=== PATIENT | male | born 1995 | race Hispanic/Latino ===

== ENCOUNTER 2017-11-07 18:34 | Emergency (ER) | payer MEDICAID, OTHER ==
[2017-11-07] MEDS ORDERED: PENICILLIN V POTASSIUM 500 MG TABLET ONE (19:10)
[2017-11-07] MEDS ORDERED: ACETAMINOPHEN-CODEINE 300/30MG TAB ONE (19:11)
== END 2017-11-07 19:26 | disposition home or self-care (01) ==
LOC: EDH 18:34
DX: K04.7 Periapical abscess without sinus (principal); Z72.0 Tobacco use

== ENCOUNTER 2018-11-18 19:43 | Emergency (ER) | payer OTHER ==
[2018-11-18 20:35] LABS: APPEARANCE,URINE Clear (CLEAR); BILIRUBIN,URINE Negative (NEGATIVE); COLOR,URINE Yellow (YELLOW); GLUCOSE, URINE (UA) Negative (NEGATIVE); KETONES,URINE Negative (NEGATIVE); LEUKOCYTE ESTERASE ,URINE Small (NEGATIVE); NITRATE,URINE Negative (NEGATIVE); OCCULT BLOOD,URINE Negative (NEGATIVE); PH,URINE 5.5 (5.0-8.0); PROTEIN,URINE Negative (NEGATIVE); UROBILINOGEN,URINE 0.2 mg/dL (0.2-1.0)
[2018-11-18 20:44] LABS: AMPHET/METH SCREEN,URINE NEGATIVE (NEGATIVE); BARBITURATE SCREEN, URINE NEGATIVE (NEGATIVE); BENZODIAZEPINES SCREEN,URINE NEGATIVE (NEGATIVE); CANNABINOID SCREEN,URINE POSITIVE (NEGATIVE); COCAINE SCREEN,URINE NEGATIVE (NEGATIVE); OPIATE SCREEN,URINE NEGATIVE (NEGATIVE); PHENCYCLIDINE SCREEN,URINE NEGATIVE (NEGATIVE)
[2018-11-18 20:58] LABS: BACTERIA,URINE Few /HPF (None Seen); RBC,URINE 0-1 /HPF (0-1); SQUAMOUS EPITHELIAL CELL,UR 0-2 /HPF (0-2)
[2018-11-18] MEDS ORDERED: KETOROLAC TROMETHAMINE 60 MG/2 ML VIAL ONE (21:52)
[2018-11-18] MEDS ORDERED: BENZONATATE 100 MG CAPSULE PO ONE (21:52)
== END 2018-11-18 22:01 | disposition home or self-care (01) ==
LOC: EDH 19:43
DX: R07.89 Other chest pain (principal); R05 Cough
CPT/HCPCS: 71046; 80305; 81001; 93005; 96372; 99284; J1885

== ENCOUNTER 2020-02-14 17:37 | Emergency (ER) | payer SELFPAY ==
[2020-02-14] MEDS ORDERED: KETOROLAC TROMETHAMINE 30MG/ML ONE (18:45)
[2020-02-14] MEDS ORDERED: ONDANSETRON HCL 4 MG/2 ML VIAL ONE (18:45)
[2020-02-14 18:56] LABS: BASOPHILS % (AUTO) 0.1 % (0.0-5.0); EOSINOPHILS % (AUTO) 0.1 % (0.0-8.0); HEMATOCRIT 42.1 % (42-54); LYMPHOCYTES % (AUTO) 7.2 % (21.0-51.0); MEAN CORPUSCULAR HEMOGLOBIN 28.9 pg (27.0-33.0); MEAN CORPUSCULAR HGB CONC 33.7 g/dL (32.0-36.0); MEAN CORPUSCULAR VOLUME 85.7 fL (79-99); MONOCYTES % (AUTO) 3.8 % (3.0-13.0); NEUTROPHILS % (AUTO) 88.5 % (40.0-77.0); PLATELET COUNT (AUTO) 194 K/uL (130-400); RED BLOOD CELL COUNT(AUTO) 4.91 MIL/uL (4.50-6.20); RED CELL DISTRIBUTION WIDTH 12.3 % (11.0-15.5)
[2020-02-14 19:05] LABS: CREATININE 1.2 mg/dL (0.5-1.5); POTASSIUM 3.6 mmol/L (3.5-5.1)
[2020-02-14 19:10] LABS: ALBUMIN 4.2 g/dL (3.5-5.0); BILIRUBIN,TOTAL 0.3 mg/dL (0.2-1.0); TOTAL PROTEIN, SERUM 7.1 g/dL (6.0-8.3)
[2020-02-14 19:17] LABS: APPEARANCE,URINE Clear (CLEAR); BILIRUBIN,URINE Negative (NEGATIVE); COLOR,URINE Yellow (YELLOW); GLUCOSE, URINE (UA) Negative (NEGATIVE); KETONES,URINE Trace mg/dL (NEGATIVE); LEUKOCYTE ESTERASE ,URINE Negative (NEGATIVE); NITRATE,URINE Negative (NEGATIVE); OCCULT BLOOD,URINE Negative (NEGATIVE); PROTEIN,URINE Negative (NEGATIVE); UROBILINOGEN,URINE 0.2 mg/dL (0.2-1.0)
[2020-02-14 19:52] LABS: BACTERIA,URINE Rare /HPF (None Seen); RBC,URINE None Seen /HPF (0-1); SQUAMOUS EPITHELIAL CELL,UR None Seen /HPF (0-2); WBC,URINE 0-1 /HPF (0-1)
== END 2020-02-14 21:30 | disposition home or self-care (01) ==
LOC: EDH 17:37
DX: G43.109 Migraine with aura, not intractable, without status migrainosus (principal); Z87.891 Personal history of nicotine dependence
CPT/HCPCS: 36415; 74176; 80053; 81001; 85025; 96374; 96375; 99284; J1885; J2405

== ENCOUNTER 2021-03-01 07:25 | Emergency (ER) | payer OTHER ==
[~2021-03-01] VITALS: Ht 175.3 cm; Wt 68.0 kg
[2021-03-01] MEDS ORDERED: ORPHENADRINE CITRATE 30 MG/ML ML IM SCH (07:45)
[2021-03-01] MEDS ORDERED: KETOROLAC 60 MG VIAL (30MG/ML) IM SCH (07:45)
[2021-03-01 08:00] VITALS: BP 138/74
[2021-03-01] MEDS ORDERED: MORPHINE 4 MG SYG IV SCH (09:30)
[2021-03-01] MEDS ORDERED: ONDANSETRON 4MG INJ IVP SCH (09:30)
[2021-03-01] MEDS ORDERED: PROPOFOL 10 MG/ML 20ML VIAL IV ONE (10:08)
[2021-03-01] MEDS ORDERED: NACL 0.9% 1000ML 1,000 ML IV ONE (10:09)
[2021-03-01] MEDS ORDERED: MIDAZOLAM HCL 1 MG/ML 2ML VIAL ONE (10:22)
[2021-03-01] MEDS ORDERED: PROPOFOL 10 MG/ML 20ML VIAL IV SCH (11:30)
[2021-03-01 12:00] VITALS: BP 130/67
[2021-03-01] MEDS ORDERED: IBUP-2070 PO (12:15)
[2021-03-01 13:40] VITALS: BP 126/74
== END 2021-03-01 13:51 | disposition home or self-care (01) ==
LOC: EDH 07:25
DX: S43.035A Inferior dislocation of left humerus, initial encounter (principal); X58.XXXA Exposure to other specified factors, initial encounter; Z79.899 Other long term (current) drug therapy; Y93.89 Activity, other specified; Y92.89 Other specified places as the place of occurrence of the external cause; Y99.8 Other external cause status
CPT/HCPCS: 23650; 73030 ×2; 96360; 96372; 99152; 99285; J1885; J2250; J2704; J7030

== ENCOUNTER 2025-01-11 15:35 | Emergency (ER) | payer SELFPAY ==
[~2025-01-11] VITALS: Ht 170.2 cm; Wt 79.4 kg
[2025-01-11 15:36] VITALS: BP 127/69; PULSE 64; RESP 20; TEMP 98.4
--- NOTE | 2025-01-11 15:57 | ERN ---
ED Note History of Present Illness Stated Complaint: SUTURE REMOVAL Chief Complaint: Suture/Staple Removal Time Seen by MD: 15:39 Dictation: PATIENT IS A 29-YEAR-OLD MALE COMING IN TODAY WITH REQUEST REMOVE SURGICAL SUTURES FROM HIS RIGHT THUMB. DR. MARK HOGUE AT PERFORMED AN I&D ON HIS THUMB ON 12/22/2024, HE HAS HAD NO FEVER NO CHILLS NO NAUSEA VOMITING. STATES HE DID NOT FOLLOW UP WITH DR. HOGUE INSTRUCTED. NEUROVASCULAR CMS INTACT Allergies: Coded Allergies: No Known Allergies (Unverified Allergy, Unknown, 03/01/21) Home Meds No Active Prescriptions or Reported Meds Past Medical History Past Medical History: No Pertinent History Surgical History: None RN Note Reviewed/Agreed w/PFSH: Yes Review of System Dictation CONSTITUTIONAL: NEGATIVE EXCEPT FOR HPI HEAD/FACE: NEGATIVE EXCEPT FOR HPI EENT: NEGATIVE EXCEPT FOR HPI RESPIRATORY: NEGATIVE EXCEPT FOR HPI GASTROINTESTINAL/ABDOMINAL: NEGATIVE EXCEPT FOR HPI GENITOURINARY: NEGATIVE EXCEPT FOR HPI MUSCULOSKELETAL: NEGATIVE EXCEPT FOR HPI INTEGUMENTARY: NEGATIVE EXCEPT FOR HPI INCISION LINE WITH SIMPLE INTERRUPTED SUTURES TO RIGHT THUMB. WELL APPROXIMATED NO INFLAMMATION NEUROLOGICAL/PSYCH: NEGATIVE EXCEPT FOR HPI HEMATOLOGIC/LYMPHATIC: NEGATIVE EXCEPT FOR HPI ALL SYSTEMS NEGATIVE, EXCEPT NOTED ABOVE. 13 POINT REVIEW OF SYSTEMS ASSESSED AND ALL NEGATIVE EXCEPT FOR ABOVE. Initial Vital Sign VS Vital Signs Date Time Temp Pulse Resp B/P (MAP) Pulse Ox O2 Delivery O2 Flow Rate FiO2 01/11/25 15:36 98.4 64 20 127/69 99 Room Air Physical Exam Dictation VITAL SIGNS REVIEWED GENERAL APPEARANCE: ALERT, ORIENTED X 3, NO ACUTE DISTRESS, WELL DEVELOPED, NOURISHED. HEAD AND FACE: NON-TRAUMATIC. EYES: PERRL, PINK CONJUNCTIVAS, EYELID NO TRAUMA, ANTERIOR CHAMBER WITH ARCUS SENILIS. EARS: PINNAS INTACT AND NO SIGNS OF TRAUMA OR ERYTHEMA EAR CANALS CLEAR AND NO DISCHARGE TM NO ERYTHEMA NOSE: NO DISCHARGE, NO BLEEDING. OROPHARYNX: MOUTH NORMAL, TONGUE PINK, PHARYNX CLEAR,NO ERYTHEMA, TONSILS NO EXUDATES, NO ABSCESSES NOTED, MUCOUS MEMBRANE MOIST NECK: SUPPLE, NON-TENDER, NO THYROMEGALY, NO MASSES, NO JVD, NO BRUITS BREAST:DEFERRED CHEST:NO TENDERNESS, NO CREPITUS, NO PARADOXICAL MOVEMENT, NO RETRACTIONS LUNGS:CLEAR, WELL-VENTILATED, SYMMETRIC, NO RALES, NO WHEEZING, NO RHONCHI, NO STRIDOR, GOOD BREATH SOUNDS BILATERALLY HEART: REGULAR RATE, REGULAR RHYTHM, NO MURMUR, NO GALLOPS VASCULAR: NO PERIPHERAL EDEMA, ABDOMEN: SOFT, POSITIVE BOWEL SOUNDS, NONDISTENDED, NO GUARDING, NONTENDER, NO REBOUND, NO MASSES NO HEPATOMEGALY, NO SPLENOMEGALY, NO DON'S SIGN, NO HERNIAS. RECTAL: DEFERRED GENITAL: DEFERRED NEUROLOGICAL: NORMAL SPEECH, MOTOR FUNCTION INTACT, SENSORY FUNCTION INTACT MUSCULOSKELETAL: NECK NONTENDER, FULL RANGE OF MOTION, BACK NONTENDER, FULL RANGE OF MOTION, EXTREMITIES: NONTENDER, FULL RANGE OF MOTION SKIN: COLOR PINK, DRY, INCISION LINE TO THENAR RIGHT THUMB NEUROVASCULAR CMS INTACT SUTURES WELL APPROXIMATED NO INFLAMMATION NO DEHISCENCE LYMPHATIC: DEFERRED Results (Laboratory/Radiology) Labs Reviewed?: Yes ED Course ED Course Vital Signs Date Time Temp Pulse Resp B/P (MAP) Pulse Ox O2 Delivery O2 Flow Rate FiO2 01/11/25 15:36 98.4 64 20 127/69 99 Room Air 1555/PATIENT WAS INSTRUCTED TO FOLLOW BACK UP WITH THE SURGEON WHO HAD PERFORMED THE SURGICAL PROCEDURE TO HIS THUMB. HE WILL BE GIVEN THE NAME OF DR. MARK HOUGE AND ALL CONTACT INFORMATION. Medical Decision Making MDM MEDICAL DECISION-MAKING BASED ON WOUND EVALUATION PATIENT WAS INSTRUCTED TO FOLLOW UP WITH DR. MARK HOGUE WHO HAD PERFORMED THE I AND D OF THE ABSCESS. DX & DISP Disposition: Discharge Departure Impression: Primary Impression: Encounter for postoperative wound care Condition: Stable Scripts No Active Prescriptions or Reported Meds Additional Instructions: FOLLOW-UP WITH PRIMARY CARE PROVIDER IN 1 TO 2 DAYS. TAKE MEDICATIONS DIRECTED HERE IN THE EMERGENCY ROOM. OKAY TO CONTINUE HOME MEDICATIONS UNLESS OTHERWISE DISCUSSED DURING YOUR VISIT IN THE EMERGENCY ROOM TODAY. RETURN TO YOUR NEAREST EMERGENCY ROOM IF SYMPTOMS WORSEN OR IF THERE IS NO IMPROVEMENT. CALL 911 IF YOU NEED IMMEDIATE ASSISTANCE. TAKE TYLENOL OR MOTRIN [id number] NEEDED AND IF NO CONTRAINDICATIONS ARE PRESENT. INCREASE ORAL HYDRATION. A WOUND CULTURE OR URINE CULTURE WAS ORDERED HERE IN THE EMERGENCY ROOM DEPARTMENT PLEASE FOLLOW-UP WITH PRIMARY CARE PROVIDER AND ADVISE THEM TO GET REPEAT PORTS FROM OUR FACILITY. IF YOU HAD ANY VINICIUS WRAP/SPLINTS THAT WERE APPLIED HERE, PLEASE DO NOT REMOVE THEM UNTIL YOU SEE YOUR PRIMARY CARE OR SPECIALTY. FOLLOW ALL INSTRUCTIONS FROM DR. MARK HOGUE, CALL HER FOR AN APPOINTMENT IN THE NEXT 1-2 DAYS Referrals: SELF,REFERRAL (PCP) MARK HOGUE MD Time of Disposition: 15:56 I have reviewed the case, and I agree with, Diagnosis and Plan SAEED NIELSEN COMPLIANCE REPRESENTATIVE Jan 11, 2025 15:56
== END 2025-01-11 16:21 | disposition home or self-care (01) ==
LOC: EDH 15:35
DX: Z48.817 Encounter for surgical aftercare following surgery on the skin and subcutaneous tissue (principal)
CPT/HCPCS: 99282